=== PATIENT | female | born 1945 | race Caucasian/White ===

== ENCOUNTER → 2023-07-09 14:27 | Outpatient (REF) | payer MEDICARE, OTHER, SELFPAY | LOC: REG 14:27 | PROVIDERS: ATTENDING PHYSICIAN Nurse Practitioner Family; REFERRING PHYSICIAN Internal Medicine | DX: R04.2 Hemoptysis (principal); J41.8 Mixed simple and mucopurulent chronic bronchitis | CPT/HCPCS: 87070; 87077; 87185; 87205 ==

== ENCOUNTER → 2023-07-13 13:07 | Outpatient (REF) | payer MEDICARE, OTHER, SELFPAY | LOC: RAD 13:07 | PROVIDERS: ATTENDING PHYSICIAN Internal Medicine; FAMILY PHYSICIAN Internal Medicine | DX: J41.8 Mixed simple and mucopurulent chronic bronchitis (principal) | CPT/HCPCS: 71046 ==

== ENCOUNTER → 2024-01-05 10:27 | Outpatient (REF) | payer MEDICARE, OTHER, SELFPAY | LOC: RAD 10:27 | PROVIDERS: ATTENDING PHYSICIAN Nurse Practitioner Family; FAMILY PHYSICIAN Internal Medicine | DX: R04.2 Hemoptysis (principal) | CPT/HCPCS: 71250 ==

== ENCOUNTER → 2024-01-30 12:59 | Outpatient (REF) | payer MEDICARE, OTHER, SELFPAY | LOC: REG 12:59 | PROVIDERS: ATTENDING PHYSICIAN Nurse Practitioner Family | DX: J41.8 Mixed simple and mucopurulent chronic bronchitis (principal) | CPT/HCPCS: 87070; 87205 ==

== ENCOUNTER 2024-03-24 02:49 | Inpatient (IN) | payer MEDICARE, OTHER, SELFPAY ==
[2024-03-24] VITALS (9 sets, daily range): BP systolic 90–144; BP diastolic 39–109; BMI 33.4; BMI 31.4
[2024-03-24 01:26] LABS: % Basophils 0.4 % (0-2); % Eosinophils 0.9 % (0-6); % Immature Granulocytes 0.3 % (0-0.5); % Lymphocytes 4.6 % (20.5-51.1); % Monocytes 3.3 % (1.7-9.3); % Neutrophils 90.5 % (42.2-75.2); Absolute Basophils 0.1 10^3/uL (0-0.2); Absolute Eosinophils 0.2 10^3/uL (0-0.7); Absolute Immature Granulocytes 0.1 10^3/uL (0-0.05); Absolute Lymphocytes 0.8 10^3/uL (1.2-3.4); Absolute Monocytes 0.5 10^3/uL (0.1-0.6); Absolute Neutrophils 14.6 10^3/uL (1.4-6.5); Hematocrit 41.6 % (37.0-47.0); Mean Corp Hgb Conc. 33.7 g/dL (33.0-37.0); Mean Corpuscular Hgb 32.5 pg (27.0-31.0); Mean Corpuscular Volume 96.5 fL (81.0-99.0); Mean Platelet Volume 9.5 fL (7.4-10.4); Nucleated Red Blood Cells % 0 %; Platelet Count 204 10^3/uL (130-400); Red Blood Cell Count 4.31 10^6/uL (4.20-5.40); Red Cell Dist. Width 12.5 % (11.5-14.5); White Blood Cell Count 16.2 10^3/uL (4.8-10.8)
[2024-03-24] MEDS: TYLENOL 650 MG PO ×4 (01:30→21:39)
--- NOTE | 2024-03-24 01:38 | ED.GENMED ---
History of Present Illness
<Lakeshia Pollack PA-C - Last Filed: 03/24/24 02:10>
General
Chief Complaint: Cough
Source: patient
Exam Limitations: none
Time Seen by Provider: 03/24/24 00:58
Nursing documentation reviewed up to this point in time: agreed with
History of Present Illness
History of Present Illness:
78 Y/O F with h/o afib on eliquis, CHF pEF, HTN, HLD, PACER, asthma, restrictive lung disease, no o2
here from home via ems for vomiting, upper back/ches tpain an dblood tinged sputum
pt says it hit her all of a sudden this evening and she did vomit a few times at home and then got a cough and was coughing up bloood
small streaks not large amount
initially we thought her eliquis was held for recent eye surgery but family confirms it was not
she is compliant with eliquis
she has had blood tinged sputum previusly with pna
pt was unaware she had a fever.
she initially c/o L upper/lateral back pain but then said it was left lower back pain
no abdomianl pain
some persistent nausea
given zofran IM by EMS
pt had previous IV contrast anaphylaxis
Past History
<Lakeshia Pollack PA-C - Last Filed: 03/24/24 02:10>
Past History
ED Past Medical History: Arrthythmia (Paroxysmal atrial fibrillation), CHF, HTN and Hypercholesterolemia
ED Past Surgical History: Cardiac (A. fib ablation x2, pacemaker), Gynecological (Hysterectomy) and Orthopedic (Hip replacement, cubital tunnel syndrome left arm 2008)
Social History
Tobacco: Former smoker (Quit at least 40 years ago)
Alcohol: None
Personal:
Living: with family
Employment: Retired
Family History
Family History: Other (Noncontributory)
Review of Systems
<Lakeshia Pollack PA-C - Last Filed: 03/24/24 02:10>
Review of Systems
Allergies reviewed?: Yes
All Other Systems: Not applicable
Phy Exam
<ELLEN Aggarwal Last Filed: 03/24/24 02:10>
Physical Exam
Physical Exam:
GENERAL: Alert ,ill appearing, spitting up, moaning
EYE: pupils equal and reactive
NECK: Supple
ENT: o/p clr, mmm.
CARDIAC: Regular rate and rhythm .
LUNGS: crackles L base, tachypneic, grunting; hypoxic
ABDOMEN: Soft, without focal tenderness, no r/g, no cvat, normal bowel sounds
NEUROLOGICAL: Alert and oriented, no focal neuro deficits
SKIN: Warm and dry, skin intact.
MUSCULOSKELETAL: No edema, well perfused. neg clarissa's sign
PSYCH: Normal and appropriate interaction.
Sepsis
<Lakeshia Pollack PA-C - Last Filed: 03/24/24 02:10>
Sepsis Screening
Sepsis Assessment: Sepsis
Sepsis Screen
Sepsis Screen: Sepsis
Date: 03/24/24
Time: 02:01
<Lucila Matson DO - Last Filed: 03/24/24 02:10>
Sepsis Screen
Sepsis Screen: Sepsis
Date: 03/24/24
Time: 02:08
Course
<ELLEN Aggarwal Last Filed: 03/24/24 02:10>
Orders/Labs/Results
Orders:
Orders
03/24/24 01:02
EKG [Electrocardiogram (*1)] Urgent
Reason for Study: Shortness of Breath
EKG- Treatment ONCE
03/24/24 01:04
Cardiac Monitoring- Treatment ONCE
IV Insert/Care/Rem.- Treatment PRN
CR Chest - 2 Views Urgent
Comment:
Reason For Exam: suspected infection
Pulse Ox/cont/shift [RESP] Urgent
Quantity: 1
Special Instructions: CONTINUOUS
03/24/24 01:07
Complete Blood Count/With Diff Urgent
Comprehensive Metabolic Panel Urgent
Lactic Acid Q4H
Comment: ON ICE, CANCEL 2ND ORDER IF FIRST LACTIC ACID LEVEL <2
Lipase Urgent
Comment: ADD ON
03/24/24 01:11
COVID-19 Antigen Urgent
Source: Nasal Swab
Influenza A+B Rapid Molecular Urgent
TRIP Source: Nasal Swab
Specimen Description:
03/24/24 01:20
Acetaminophen [Tylenol] 650 mg PO NOW STA
03/24/24 01:22
Troponin I Urgent
03/24/24 01:25
PTT Urgent
Procalcitonin Urgent
PCT Algorithmm Indication: Respiratory
Prothrombin Time Urgent
03/24/24 01:35
Diphenhydramine [Benadryl] 50 mg IV NOW STA
Hydrocortisone Sod Succinate [Solu-Cortef] 200 mg IV NOW STA
03/24/24 01:37
0.9% Sodium Chloride 500 ml [Nss] 500 ml IV BOLUS
03/24/24 01:45
Azithromycin 500 mg/250 ml [Zithromax Infusion] 500 mg in 250 ml IV NOW
03/24/24 01:46
CefTRIAXone [Rocephin] 2,000 mg IV NOW STA
03/24/24 01:50
Add On- LAB Urgent
Tests Added?: LIPASE
03/24/24 01:51
Ondansetron Injectable [Zofran] 4 mg .ROUTE .STK-MED ONE
Ondansetron Injectable [Zofran] 4 mg IV NOW STA
03/24/24 02:06
Blood Culture Urgent
TRIP Source: Blood/Venous
Specimen Description:
03/24/24 05:15
Lactic Acid Q4H
Comment: ON ICE, CANCEL 2ND ORDER IF FIRST LACTIC ACID LEVEL <2
Abnormal Lab Results
03/24/24
01:07
WBC 16.2 H 10^3/uL
(4.8-10.8)
MCH 32.5 H pg
(27.0-31.0)
Abs Immat Gran (auto) 0.1 H 10^3/uL
(0-0.05)
Absolute Neuts (auto) 14.6 H 10^3/uL
(1.4-6.5)
Absolute Lymphs (auto) 0.8 L 10^3/uL
(1.2-3.4)
Neutrophils % 90.5 H %
(42.2-75.2)
Lymphocytes % 4.6 L %
(20.5-51.1)
BUN 23 H mg/dl
(7-17)
Glucose 123 H mg/dl
(70-99)
03/24/24 01:07
03/24/24 01:07
Vital Signs
Initial and Last Documented VS:
Initial Vital Signs
Temp Pulse Resp BP Pulse Ox
101.8 F H 60 30 144/109 87
03/24/24 00:58 03/24/24 00:58 03/24/24 00:58 03/24/24 00:58 03/24/24 00:58
Last Documented Vital Signs
Temp Pulse Resp BP Pulse Ox
101.8 F H 61 21 144/109 95
03/24/24 00:58 03/24/24 02:00 03/24/24 02:00 03/24/24 00:58 03/24/24 01:30
<Lucila Matson DO - Last Filed: 03/24/24 02:10>
Orders/Labs/Results
Orders:
Orders
03/24/24 01:02
EKG [Electrocardiogram (*1)] Urgent
Reason for Study: Shortness of Breath
EKG- Treatment ONCE
03/24/24 01:04
Cardiac Monitoring- Treatment ONCE
IV Insert/Care/Rem.- Treatment PRN
CR Chest - 2 Views Urgent
Comment:
Reason For Exam: suspected infection
Pulse Ox/cont/shift [RESP] Urgent
Quantity: 1
Special Instructions: CONTINUOUS
03/24/24 01:07
Complete Blood Count/With Diff Urgent
Comprehensive Metabolic Panel Urgent
Lactic Acid Q4H
Comment: ON ICE, CANCEL 2ND ORDER IF FIRST LACTIC ACID LEVEL <2
Lipase Urgent
Comment: ADD ON
03/24/24 01:11
COVID-19 Antigen Urgent
Source: Nasal Swab
Influenza A+B Rapid Molecular Urgent
TRIP Source: Nasal Swab
Specimen Description:
03/24/24 01:20
Acetaminophen [Tylenol] 650 mg PO NOW STA
03/24/24 01:22
Troponin I Urgent
03/24/24 01:25
PTT Urgent
Procalcitonin Urgent
PCT Algorithmm Indication: Respiratory
Prothrombin Time Urgent
03/24/24 01:35
Diphenhydramine [Benadryl] 50 mg IV NOW STA
Hydrocortisone Sod Succinate [Solu-Cortef] 200 mg IV NOW STA
03/24/24 01:37
0.9% Sodium Chloride 500 ml [Nss] 500 ml IV BOLUS
03/24/24 01:45
Azithromycin 500 mg/250 ml [Zithromax Infusion] 500 mg in 250 ml IV NOW
03/24/24 01:46
CefTRIAXone [Rocephin] 2,000 mg IV NOW STA
03/24/24 01:50
Add On- LAB Urgent
Tests Added?: LIPASE
03/24/24 01:51
Ondansetron Injectable [Zofran] 4 mg .ROUTE .STK-MED ONE
Ondansetron Injectable [Zofran] 4 mg IV NOW STA
03/24/24 02:06
Blood Culture Urgent
TRIP Source: Blood/Venous
Specimen Description:
03/24/24 05:15
Lactic Acid Q4H
Comment: ON ICE, CANCEL 2ND ORDER IF FIRST LACTIC ACID LEVEL <2
Abnormal Lab Results
03/24/24
01:07
WBC 16.2 H 10^3/uL
(4.8-10.8)
MCH 32.5 H pg
(27.0-31.0)
Abs Immat Gran (auto) 0.1 H 10^3/uL
(0-0.05)
Absolute Neuts (auto) 14.6 H 10^3/uL
(1.4-6.5)
Absolute Lymphs (auto) 0.8 L 10^3/uL
(1.2-3.4)
Neutrophils % 90.5 H %
(42.2-75.2)
Lymphocytes % 4.6 L %
(20.5-51.1)
BUN 23 H mg/dl
(7-17)
Glucose 123 H mg/dl
(70-99)
03/24/24 01:07
03/24/24 01:07
Vital Signs
Initial and Last Documented VS:
Initial Vital Signs
Temp Pulse Resp BP Pulse Ox
101.8 F H 60 30 144/109 87
03/24/24 00:58 03/24/24 00:58 03/24/24 00:58 03/24/24 00:58 03/24/24 00:58
Last Documented Vital Signs
Temp Pulse Resp BP Pulse Ox
101.8 F H 61 21 144/109 95
03/24/24 00:58 03/24/24 02:00 03/24/24 02:00 03/24/24 00:58 03/24/24 01:30
<Lakeshia Pollack PA-C - Last Filed: 03/24/24 02:10>
MDM/Problems Addressed
Differential Diagnosis Includes:
pna, PE, PTX, pleural effusion, pancreaitits
MDM/Problems Addressed:
mary zuñiga 78 y/o F asthma, RLD, no o2, afib/pacer on eliquis
vomited tonight several times, then cough, small hemoptysis, L sided back/chest pain, hypoxic on RA, febrile
LLL pna
pulse ox 93% on 3L
wbc 16
lactate normal
flu/covid neg
trop neg
compliant with eliquis so unlikely PE; previous anaphylaxis to contrast;
<Lakeshia Pollack PA-C - Last Filed: 03/24/24 02:10>
*Critical Care Note
Total Time (30-74mins, 75-104mins- exclusive of procedures): Not Applicable
ED Attending Note
<ELLEN Aggarwal Last Filed: 03/24/24 02:10>
-
Portions of this chart may have been created with voice recognition software.� Occasional wrong word or��sound alike� substitutions may have occurred due to the inherent limitations of voice recognition software.
<Lucila Matson DO - Last Filed: 03/24/24 02:10>
ED Attending Note
Patient seen and examined by attending physician: Yes
I performed a history and physical exam of patient and discussed management with resident, I reviewed resident's note and agree with documented findings and plan of care.: Yes
ED Attending Note:
78-year-old woman who resides at home with family. She has history of A-fib chronically maintained on Eliquis. History of CHF, hypertension, hyperlipidemia, restrictive lung disease, pacemaker, obstructive sleep apnea, GERD, seizure disorder,
migraine headaches. Prior history of pneumonia with hemoptysis with hospitalization June 2022. Recent right eye cataract extraction.
She presents with several hour history of cough, hemoptysis, fever, chills, left lower lateral thoracic back pain.
Found to be significant febrile 101.8 �F.
Moderately hypoxic with room air pulse ox of 89%.
Moderately tachypneic initially. Tachypnea and hypoxia have improved with nasal cannula oxygen currently at 3 L.
Coarse rhonchi and moderately decreased breath sounds left base.
Chest x-ray shows large dense pneumonia left lower lobe. I suspect community-acquired pneumonia as cause for fever, hemoptysis, hypoxia.
She remains hemodynamically stable.
PE/pulmonary infarct much less likely as patient maintained on Eliquis, compliant with medication and no prior history of thromboembolism.
History, exam and chest x-ray findings not consistent with aortic dissection, Boerhaave's.
CTA of the chest initially considered but at this point we will hold off.
IV fluids initiated as well as Tylenol, will initiate IV antibiotics and admit to hospitalist service.
Discharge Plan
Departure
Patient Disposition: Admit
Date of Disposition: 03/24/24
Time of Disposition: 01:59
Admit to: IMU
Presentation/result/management discussed w/ accepting MD/DO: Hospitalist
Condition: Fair
Covid-19: Negative COVID-19
Discharge Problem:
Pneumonia, Hemoptysis, Hypoxic
Prescriptions:
No Action
atorvastatin 20 mg Tablet
20 mg PO HS
sotalol 80 mg Tablet
40 mg PO BID
spironolactone 25 mg Tablet
12.5 mg PO DAILY
ropinirole 0.5 mg Tablet
1 mg PO HS
omeprazole 20 mg Capsule,Delayed Release(Dr/Ec)
20 mg PO DAILY
montelukast 10 mg Tablet
10 mg PO DAILY
lisinopril 5 mg Tablet
2.5 mg PO QPM
estradiol 0.5 mg Tablet
1 mg PO DAILY
dnbcb-[id number]-epa-fish oil 350-400 mg Capsule
1 cap PO DAILY
folic acid 800 mcg Tablet
0.8 mg PO QPM
levalbuterol tartrate 45 mcg/actuation Hfa Aerosol Inhaler
2 inh INHALATION R Q6
potassium chloride [Klor-Con M20] 20 mEq tablet,ER particles/crystals
20 meq PO DAILY 30 Days Qty: 30 0RF
multivitamin Tablet
1 tab PO DAILY
ascorbic acid (vitamin C) [Vitamin C] 1,000 mg Tablet
1,000 mg PO DAILY
polyethylene glycol 3350 [Miralax] 17 gram Powder In Packet
17 g PO DAILY PRN (Reason: constipation)
calcium carbonate 500 mg calcium (1,250 mg) Tablet
600 mg PO QPM
cholecalciferol (vitamin D3) [Vitamin D3] 25 mcg (1,000 unit) Tablet
25 mcg PO QPM
zonisamide 100 mg Capsule
300 mg PO DAILY
Rx Instructions:
3 TABS DAILY IN PM
budesonide 0.5 mg/2 mL Suspension For Nebulization
0.5 mg INHALATION BID
Eliquis 5 mg Tablet
5 mg PO BID
Anoro Ellipta 62.5-25 mcg/actuation Blister With Device
1 inh INHALATION DAILY
Emgality Pen 120 mg/mL Pen Injector
120 mg SC QMONTH
Referrals:
Erika Up DO [Family Provider] -
Interventions
Interventions:
*Risk Screen - Suicide Last Done: 03/24/24 00:58
*General Assessment Last Done: 03/24/24 00:58
*Neglect/Abuse Screening Last Done: 03/24/24 00:58
ED- Fall Risk Assessment Last Done: 03/24/24 01:19
*ED COVID-19 Vaccine History Last Done: 03/24/24 00:58
ED- Pulmonary Assessment Last Done: 03/24/24 01:19
Discharge Date and Time
Print Language: SYRIAC
[2024-03-24 01:39] LABS: Lactic Acid 1.1 mmol/L (0.7-2.0)
[2024-03-24 01:43] LABS: COVID-19 Antigen Negative (Negative)
[2024-03-24 01:47] LABS: ALT (SGPT) 15 U/L (0-35); AST (SGOT) 22 U/L (14-36); Albumin 4.3 g/dl (3.5-5.0); Alkaline Phosphatase 83 U/L (38-126); Blood Urea Nitrogen 23 mg/dl (7-17); Carbon Dioxide 27 mmol/L (22-30); Chloride 102 mmol/L (98-107); Estimated Creatinine Clearance 71 ml/min; Glucose 123 mg/dl (70-99); Potassium 4.3 mmol/L (3.5-5.1); Sodium 137 mmol/L (135-145); Total Bilirubin 0.5 mg/dl (0.2-1.3); Total Protein 6.9 g/dl (6.3-8.2); eGFR > 60.00
[2024-03-24 01:52] LABS: Troponin I < 0.012 ng/ml
[2024-03-24 02:00] LABS: APTT 26.3 Sec (23.4-35.0); INR 1.03; PT 13.8 Sec (11.4-14.6)
[2024-03-24 02:03] LABS: Procalcitonin < 0.05 ng/ml (0.0-0.25)
[2024-03-24] MEDS: NSS 500 IV (02:06)
[2024-03-24] MEDS: ZOFRAN 4 MG IV (02:06)
[2024-03-24] MEDS: ROCEPHIN 2000 MG IV (02:06)
[2024-03-24 02:15] LABS: Lipase 97 U/L (23-300)
[2024-03-24] MEDS: ZITHROMAX INFUSION 250 IV (02:19)
--- NOTE | 2024-03-24 02:30 | HPS.HSE ---
Family Physician
-
Family Physician: Erika Up
Chief Complaint
-
Cough, Back pain
History of Present Illness
Patient is a 78y F with PMH significant for COPD, A-Fib and NADIA on CPAP who presents to ED complaining of cough, hemoptysis and back pain. Patient states that she was feeling well until this evening when her symptoms started rather suddenly.
She is not aware of any known sick contacts. She reports pain in the L flank / low back area. Nausea at home with a few episodes of non-bloody emesis. She has had cough productive of blood-tinged / streaked mucus throughout the evening.
Patient states that she felt well the day prior to admission.
She had R cataract surgery on . She did not miss any doses of Eliquis for this surgery.
Medical History
Past Medical History
Past Medical History: Reports Other
Additional Past Medical History:
COPD
A-Fib s/p Ablation
Diverticular Disease
GERD / Hiatal Hernia
IBS
NADIA on CPAP
Seizure Disorder
Melanoma
Chronic HFpEF
Past Surgical History: Reports Other
Additional Past Surgical History:
Hysterectomy
Bilateral Breast Implants
AMADOR
PPM Placement
Left Cubital Tunnel Surgery
PVI Ablation x 2
Skin Cancer Excision(s)
Sinus Surgery
Social History
Tobacco: Former Smoker (Quit in 1984. < 20 pack years total use.)
Alcohol: Occasional
Drug: None
Family History
Family History: Not pertinent
Allergies / Home Medications
Allergies reflects when Allergies were last updated in [facility].
Home Medications with original date entered in [facility]
Allergy/Medication List:
Allergies
Allergy/AdvReac Type Severity Reaction Status Date / Time
iohexol [From Omnipaque] Allergy Severe Anaphylaxis Verified 07/16/22 19:22
mupirocin [From Bactroban] Allergy Intermediate cellulitis Verified 07/16/22 12:36
beclomethasone dipropionate Allergy Rash Verified 07/16/22 12:36
[From Vancenase]
cortisone Allergy Nausea / Verified 11/20/22 10:36
Vomiting
diclofenac potassium Allergy Rash Verified 07/16/22 12:36
[From Cataflam]
dofetilide [From Tikosyn] Allergy Unknown Verified 11/20/22 10:36
gabapentin Allergy Swelling Verified 11/20/22 10:35
Influenza Virus Vaccines Allergy Nausea/vomi Verified 07/16/22 12:36
ting
meperidine HCl [From Demerol] Allergy hyperactivi Verified 07/16/22 12:36
ty
metolazone Allergy Nausea / Verified 11/20/22 10:36
Vomiting
metronidazole [From Flagyl] Allergy Rash Verified 07/16/22 12:36
Metronidazole HCl Allergy Rash Verified 07/16/22 12:36
[From Flagyl]
moxifloxacin [From Avelox] Allergy Tongue Verified 11/20/22 10:34
Swelling
nabumetone [From Relafen] Allergy Rash Verified 07/16/22 12:36
pneumococcal 23-valent Allergy nausea and Verified 07/16/22 12:36
polysacchari vomiting
[From Pneumovax 23]
propoxyphene napsylate Allergy Rash Verified 07/16/22 12:36
[From Darvocet-N 100]
Tetanus Vaccines and Toxoid Allergy nausea/vomi Verified 07/16/22 12:36
ting
Home Medications
atorvastatin 20 mg tablet 20 mg PO HS High cholesterol 01/07/22
estradiol 0.5 mg tablet 1 mg PO DAILY Hormonal agent 01/07/22
lisinopril 5 mg tablet 2.5 mg PO QPM Blood pressure 01/07/22
montelukast 10 mg tablet 10 mg PO DAILY Allergies 01/07/22
ypgqo9-hih-ghi-other sozff9c-lopx oil 350 mg-400 mg capsule 1 cap PO DAILY Supplement 01/07/22
omeprazole 20 mg capsule,delayed release 20 mg PO DAILY Gastrointestinal issue 01/07/22
ropinirole 0.5 mg tablet 1 mg PO HS restless legs 01/07/22
sotalol 80 mg tablet 40 mg PO BID Arrhythmia 01/07/22
spironolactone 25 mg tablet 12.5 mg PO DAILY Fluid retention/Swelling 01/07/22
folic acid 800 mcg tablet 0.8 mg PO QPM Supplement 01/09/22
levalbuterol tartrate 45 mcg/actuation aerosol inhaler 2 inh inhalation R Q6 Lung/breathing issues 02/24/22
potassium chloride 20 mEq tablet,extended release(part/cryst) (Klor-Con M) 20 meq PO DAILY Electrolyte Repletion 30 days #30 tabs 03/01/22
ascorbic acid (vitamin C) 1,000 mg tablet (Vitamin C) 1,000 mg PO DAILY Supplement 07/16/22
calcium carbonate 600 mg PO QPM Supplement 07/16/22
cholecalciferol (vitamin D3) 25 mcg (1,000 unit) tablet (Vitamin D3) 25 mcg PO QPM Supplement 07/16/22
multivitamin 1 tab PO DAILY Supplement 07/16/22
polyethylene glycol 3350 17 gram oral powder packet (Miralax) 17 g PO DAILY PRN constipation 07/16/22
zonisamide 100 mg capsule 300 mg PO DAILY 11/20/22
apixaban 5 mg tablet (Eliquis) 5 mg PO BID 03/24/24
budesonide 0.5 mg/2 mL suspension for nebulization 0.5 mg inhalation BID 03/24/24
galcanezumab-gnlm 120 mg/mL subcutaneous pen injector (Emgality Pen) 120 mg SC QMONTH 03/24/24
prednisolone sod phos 1 %-moxifloxacin 0.5 %-bromfen 0.075 % eye drops 3 drp ophthalmic (eye) TID 03/24/24
umeclidinium 62.5 mcg-vilanterol 25 mcg/actuation powdr for inhalation (Anoro Ellipta) 1 inh inhalation DAILY 03/24/24
Review of Systems
-
History Source: Patient
A 12 point ROS was completed and negative except as noted: Yes
Constitutional: Reports Fatigue; Denies Fever or Chills
EENT: Denies Sore Throat
Respiratory: Reports Cough, Hemoptysis and Trouble Breathing
Cardiac: Denies Chest Pain, Diaphoresis or Palpitations
Abdomen/GI: Reports Nausea and Vomiting; Denies Abdominal Pain, Diarrhea, Bloody Stools or Black Stools
: Reports Flank Pain; Denies Dysuria, Frequency or Bleeding
Musculoskeletal: Reports Other (Back Pain); Denies Joint Pain or Edema
Neurological: Denies Dizzy or Headache
Psych: Denies Depression or Anxiety
Physical Exam
Vital Signs
Vital Signs
Temp Pulse Resp BP Pulse Ox
101 F H 70 22 104/49 95
03/24/24 02:20 03/24/24 02:21 03/24/24 02:21 03/24/24 02:21 03/24/24 02:21
Physical Exam
General: Other (Ill-appearing 78y F in mild distress due to nausea, pain, etc. Tactile fever.)
HEENT: Moist mucous membranes and PERRLA
Respiratory: Other (Decreased BS / dullness appreciated over the L base. No wheezing.)
Cardiac: S1/S2 and Regular Rhythm; No Murmur
GI: Soft, Non Tender, Non Distended and Normal Bowel Sounds
Musculoskeletal: No Clubbing, No Cyanosis and No Edema
Neuro: AO x 3
Laboratory Results
-
03/24/24 01:07
03/24/24 01:07
Laboratory Results
PT 13.8 Sec (11.4-14.6) 03/24/24 01:25
INR 1.03 03/24/24 01:25
APTT 26.3 Sec (23.4-35.0) 03/24/24 01:25
Lactic Acid 1.1 mmol/L (0.7-2.0) 03/24/24 01:07
Total Bilirubin 0.5 mg/dl (0.2-1.3) 03/24/24 01:07
AST 22 U/L (14-36) 03/24/24 01:07
ALT 15 U/L (0-35) 03/24/24 01:07
Alkaline Phosphatase 83 U/L (38-126) 03/24/24 01:07
Troponin I < 0.012 ng/ml 03/24/24 01:22
Lipase 97 U/L (23-300) 03/24/24 01:07
Impression/Plan
-
A/P: Patient is a 78y F with PMH significant for COPD, NADIA and seizure disorder who presents to ED complaining of cough, hemoptysis and back pain.
LLL Pneumonia
Sepsis secondary to the above
Acute Hypoxemic Respiratory Insufficiency secondary to the above
- Admit for further evaluation and treatment.
- Patient presents with fever, tachypnea and leukocytosis with CXR demonstrating L base infiltrate / opacity.
- Abx with ceftriaxone and doxycycline.
- Supportive care including nebs, mucolytics, O2 support, etc.
- Follow for clinical improvement.
- Pulmonary evaluation for additional recommendations.
- Consideration for PE given abrupt onset - but with abnormal CXR, fever and current use of Eliquis this is less likely.
Paroxysmal Atrial Fibrillation
- No recurrent A-Fib appreciated s/p most recent PVI ablation.
- Remains on sotalol and OAC.
- Continue current CV med regimen including Eliquis.
- Monitor on telemetry.
s/p R Cataract Surgery
- Continue current eye drop regimen.
Seizure Disorder
- Stable. No recent seizure activity.
- Continue Zonegran dose without changes.
- Follow for any breakthrough seizure activity.
Chronic HFpEF
- Stable. No evidence of volume overload on exam.
- Continue current med regimen including spironolactone - with holding parameters for BP.
- Hold potassium supplementation for now and follow labs / lytes.
- Follow I/Os, daily weights, etc.
GERD
- Stable. Continue PPI.
DVT Prophylaxis: Continue Eliquis
Code Status: DNR
[2024-03-24] MEDS: COMPAZINE 5 MG IV (04:16)
--- NOTE | 2024-03-24 06:33 | RESPNOTE ---
Discussed with Dr. Jain to place CPT on Hold until PT Hemoptysis is quantified and Pt is accessed.
[2024-03-24 07:08] LABS: Blood Urea Nitrogen 27 mg/dl (7-17); Calcium 8.9 mg/dl (8.4-10.2); Carbon Dioxide 21 mmol/L (22-30); Chloride 105 mmol/L (98-107); Estimated Creatinine Clearance 57 ml/min; Glucose 138 mg/dl (70-99); Potassium 3.9 mmol/L (3.5-5.1); Sodium 136 mmol/L (135-145); eGFR 58.39
[2024-03-24] MEDS: DUONEB 3 ML INH ×4 (08:04→19:17)
[2024-03-24] MEDS: PROTONIX 40 MG PO (08:20)
[2024-03-24] MEDS: ELIQUIS 5 MG PO ×2 (08:21→21:28)
[2024-03-24] MEDS: BETAPACE PO (08:21)
[2024-03-24] MEDS: MUCINEX 600 MG PO ×2 (08:21→21:27)
[2024-03-24] MEDS: VIBRAMYCIN 100 MG PO ×2 (08:21→21:27)
[2024-03-24] MEDS: SINGULAIR 10 MG PO (08:22)
[2024-03-24 08:52] LABS: Hematocrit 35.1 % (37.0-47.0); Mean Corp Hgb Conc. 34.2 g/dL (33.0-37.0); Mean Corpuscular Volume 96.4 fL (81.0-99.0); Mean Platelet Volume 9.7 fL (7.4-10.4); Platelet Count 163 10^3/uL (130-400); Red Blood Cell Count 3.64 10^6/uL (4.20-5.40); Red Cell Dist. Width 12.5 % (11.5-14.5); White Blood Cell Count 18.9 10^3/uL (4.8-10.8)
--- NOTE | 2024-03-24 09:15 | W.PN.HOSP.TC ---
Today's Communication/Plan
-
see bold
Assessment / Plan
Assessment / Plan
HPI: 78y F with PMH significant for COPD, A-Fib and NADIA on CPAP who presents to ED complaining of cough, hemoptysis and back pain. Patient states that she was feeling well until this evening when her symptoms started rather suddenly. She is not
aware of any known sick contacts. She reports pain in the L flank / low back area. Nausea at home with a few episodes of non-bloody emesis. She has had cough productive of blood-tinged / streaked mucus throughout the evening.
LLL Pneumonia w/ mild hemoptysis
Sepsis secondary to the above
Acute Hypoxemic Respiratory Insufficiency secondary to the above
- Legionella/Streptococcus negative, Influenza negative/COVID-negative
- Appreciate pulmonology input, continue Rocephin/doxy day 1
- Currently requiring 2 L of oxygen, wean as tolerated
- Follow-up on blood/sputum cultures, trend fever curve and white count
Paroxysmal Atrial Fibrillation
- No recurrent A-Fib appreciated s/p most recent PVI ablation.
- Continue on sotalol and Eliquis, monitor on telemetry
S/p R Cataract Surgery
- Continue current eye drop regimen.
Seizure Disorder
- Stable, continue Zonegran dose without changes.
Chronic HFpEF
- Hold spironolactone/lisinopril secondary to soft blood pressure
GERD
- Stable. Continue PPI.
DVT Prophylaxis: Continue Eliquis
Code Status: DNR
Physical Exam
General: Appears to not feel well, no acute distress
HEENT: Normocephalic, Atraumatic, EOMI, MMM
R eye shield in place
Respiratory: Bibasilar crackles
Cardiac: Normal S1/S2, Regular Rate and Rhythm
GI: Soft, Nontender, Nondistended, Normal Bowel Sounds
Extremities: No Clubbing, Cyanosis, or Edema
Neuro: Nonfocal/Grossly Intact
Psych: Calm, Cooperative
Derm: No Visible lesions
Anticipated Discharge: > 48 hours
Subjective/Interval History
-
Date of Service: March 24, 2024
Objective Data
-
Labs:
Laboratory Results
03/24/24 03/24/24 03/24/24
01:07 01: 06:37
WBC 16.2 H 18.9 H
Hgb 14.0 12.0
Hct 41.6 35.1 L
Plt Count 204 163 D
PT 13.8
INR 1.03
APTT 26.3
Sodium 137 136
Potassium 4.3 3.9
Chloride 102 105
Carbon Dioxide 27 21 L
BUN 23 H 27 H
Creatinine 0.8 1.0
Glucose 123 H 138 H
Calcium 10.0 8.9
Total Bilirubin 0.5
AST 22
ALT 15
Alkaline Phosphatase 83
Vital Signs:
Vital Signs
Temp Pulse Resp BP Pulse Ox
98.6 F 60 18 90/43 94
03/24/24 06:39 03/24/24 08:21 03/24/24 08:05 03/24/24 08:21 03/24/24 08:41
--- NOTE | 2024-03-24 11:00 | EDRN ---
Pt awake. I assked her to keep track of how often she is coughing up bloody sputum for us to record
--- NOTE | 2024-03-24 11:46 | EDRN ---
pt 's daughter asked to bring in her eye drops
--- NOTE | 2024-03-24 11:48 | EDRN ---
pt's daughter states that 1 week ago she started a new inhaler- brezby.. as per pulmonology. one of the side effects is pneumonia
--- NOTE | 2024-03-24 12:34 | PTCARENOTE ---
Received pt from ED via stretcher. AAOX3. Ambulated to bed independently. Standby assist. Pt complained of chronic lower back pain, pain medication provided, see MAR. parts sales manager placed. Assessed and oriented to room. Pt verbalized
understanding of call krueger. Call krueger placed within close reach.
--- NOTE | 2024-03-24 14:55 | PTCARENOTE ---
Pt tachycardic, HR 140, non sustaining. Pt sleeping. Md made aware.
--- NOTE | 2024-03-24 15:24 | CON.PUL ---
Consultation
Consultation Request
Date/Time Consultation Requested: 03/24/2024
Date/Time Consultation Performed: 03/24/2024
Requesting Provider: Dr. Jain
Performing Provider: Dr. Colton Thompson
Reason for Consultation: Hemoptysis/pneumonia
Medical History
-
History of Present Illness:
78-year-old female with past medical history significant for COPD, atrial fibrillation, obstructive sleep apnea on CPAP therapy who presented to the emergency room complaining of cough, hemoptysis and back pain. Patient states that for the last 24
hours she has not been feeling well. Symptoms started rather suddenly. Complains of left flank and low back pain area. Reports cough with blood-tinged sputum since the night prior admission.
Patient did have right cataract surgery on .
Has been on anticoagulation all along.
Past Medical History
Past Medical History: Other (See assessment and plan)
Social History
Tobacco: Smoker (Quit in 1984, less than [id number] history.)
Alcohol: Occasional
Drug: None
Family History
Family History: Reviewed & Not Pertinent
Allergies / Home Medications
Allergies
Allergy/AdvReac Type Severity Reaction Status Date / Time
iohexol [From Omnipaque] Allergy Severe Anaphylaxis Verified 07/16/22 19:22
mupirocin [From Bactroban] Allergy Intermediate cellulitis Verified 07/16/22 12:36
beclomethasone dipropionate Allergy Rash Verified 07/16/22 12:36
[From Vancenase]
cortisone Allergy Nausea / Verified 11/20/22 10:36
Vomiting
diclofenac potassium Allergy Rash Verified 07/16/22 12:36
[From Cataflam]
dofetilide [From Tikosyn] Allergy Unknown Verified 11/20/22 10:36
gabapentin Allergy Swelling Verified 11/20/22 10:35
Influenza Virus Vaccines Allergy Nausea/vomi Verified 07/16/22 12:36
ting
meperidine HCl [From Demerol] Allergy hyperactivi Verified 07/16/22 12:36
ty
metolazone Allergy Nausea / Verified 11/20/22 10:36
Vomiting
metronidazole [From Flagyl] Allergy Rash Verified 07/16/22 12:36
Metronidazole HCl Allergy Rash Verified 07/16/22 12:36
[From Flagyl]
moxifloxacin [From Avelox] Allergy Tongue Verified 11/20/22 10:34
Swelling
nabumetone [From Relafen] Allergy Rash Verified 07/16/22 12:36
pneumococcal 23-valent Allergy nausea and Verified 07/16/22 12:36
polysacchari vomiting
[From Pneumovax 23]
propoxyphene napsylate Allergy Rash Verified 07/16/22 12:36
[From Darvocet-N 100]
Tetanus Vaccines and Toxoid Allergy nausea/vomi Verified 07/16/22 12:36
ting
Home Medications
�Medication �Instructions �Recorded �Confirmed �Last Taken �Type
atorvastatin 20 mg tablet 20 mg PO HS High cholesterol 01/07/22 03/24/24 11/19/22 History
estradiol 0.5 mg tablet 1 mg PO DAILY Hormonal agent 01/07/22 03/24/24 11/20/22 History
lisinopril 5 mg tablet 2.5 mg PO QPM Blood pressure 01/07/22 03/24/24 11/19/22 History
montelukast 10 mg tablet 10 mg PO DAILY Allergies 01/07/22 03/24/24 11/20/22 History
omeprazole 20 mg capsule,delayed 20 mg PO DAILY Gastrointestinal 01/07/22 03/24/24 11/20/22 History
release issue
ropinirole 0.5 mg tablet 1 mg PO HS restless legs 01/07/22 03/24/24 11/19/22 History
sotalol 80 mg tablet 40 mg PO BID Arrhythmia 01/07/22 03/24/24 11/20/22 History
spironolactone 25 mg tablet 12.5 mg PO DAILY Fluid 01/07/22 03/24/24 11/20/22 History
retention/Swelling
folic acid 800 mcg tablet 0.8 mg PO QPM Supplement 01/09/22 03/24/24 11/19/22 History
levalbuterol tartrate 45 2 inh inhalation R Q6HPRN PRN sob 02/24/22 03/24/24 11/20/22 History
mcg/actuation aerosol inhaler
potassium chloride 20 mEq 20 meq PO DAILY Electrolyte 03/01/22 03/24/24 11/20/22 Rx
tablet,extended Repletion 30 days #30 tabs
release(part/cryst) (Klor-Con M)
ascorbic acid (vitamin C) 1,000 mg 1,000 mg PO DAILY Supplement 07/16/22 03/24/24 07/16/22 History
tablet (Vitamin C)
calcium carbonate 600 mg PO QPM Supplement 07/16/22 03/24/24 11/19/22 History
cholecalciferol (vitamin D3) 25 25 mcg PO QPM Supplement 07/16/22 03/24/24 11/19/22 History
mcg (1,000 unit) tablet (Vitamin
D3)
multivitamin 1 tab PO DAILY Supplement 07/16/22 03/24/24 11/20/22 History
polyethylene glycol 3350 17 gram 17 g PO DAILYPRN PRN constipation 07/16/22 03/24/24 Unknown History
oral powder packet (Miralax)
zonisamide 100 mg capsule 300 mg PO QPM seizure 11/20/22 03/24/24 11/19/22 History
apixaban 5 mg tablet (Eliquis) 5 mg PO BID Blood Clot 03/24/24 03/24/24 Unknown History
Prevention/Tx
budesonide 0.5 mg/2 mL suspension 0.5 mg inhalation R BID 03/24/24 03/24/24 Unknown History
for nebulization Lung/Breathing Issues
galcanezumab-gnlm 120 mg/mL 120 mg SC QMONTH headache 03/24/24 03/24/24 03/03/24 History
subcutaneous pen injector
(Emgality Pen)
prednisolone sod phos 1 3 drp ophthalmic (eye) TID Eye 03/24/24 03/24/24 Unknown History
%-moxifloxacin 0.5 %-bromfen 0.075 Condition
% eye drops
umeclidinium 62.5 mcg-vilanterol 1 inh inhalation R DAILY 03/24/24 03/24/24 Unknown History
25 mcg/actuation powdr for Lung/Breathing Issues
inhalation (Anoro Ellipta)
Review of Systems
-
History Source: Patient
All other systems: Negative unless noted
Vitals / Labs / Diagnostic Testing
Vital Signs
Temp Pulse Resp BP Pulse Ox
97.5 F 60 18 113/53 95
03/24/24 11:54 03/24/24 15:20 03/24/24 15:20 03/24/24 11:54 03/24/24 15:20
Lab Data
03/24/24 06:37
03/24/24 06:37
Laboratory Results
03/24/24
:25
PT 13.8
INR 1.03
APTT 26.3
Microbiology
03/24/24 11:33 Urine Legionella Urinary Antigen - Final
Negative for Legionella pneumophila Serogroup 1 antigen.
A negative result does not rule out the possiblity of
Legionella infection due to other serogroups or species of
Legionella. Clinical correlation is recommended.
03/24/24 11:33 Urine Streptococcus pneumoniae Antigen (M - Final
Negative for Streptococcus pneumoniae antigen.
A negative result does not exclude infection with
Streptococcus pneumoniae. Clinical correlation is
recommended.
03/24/24 01:11 Nasal Swab Influenza Types A & B (LARRY) - Final
Negative for Influenza A & B, NAAT
Negative results must be combined with clinical observations
and patient history.
Nucleic Acid Amplification test (NAAT)performed on the
[employer] platform.
Diagnostic Testing:
Physical Exam
-
HEENT: Normocephalic
Cardiovascular: S1/S2
Respiratory: Non-Labored Respirations
GI: Soft
Neurology: Awake, Alert and Oriented
Skin: Warm
General: Comfortable
Assessment
-
78-year-old woman with history of former smoking quit long time ago, COPD, obstructive sleep apnea, history of seizure disorder, chronic heart failure with preserved ejection fraction presented with shortness of breath, hypoxemia and back pain.
Hemoptysis due to left lower lobe pneumonia
Chest x-ray 03/24/2024: Demonstrated new left lower lobe retrocardiac infiltrate.
Recent CT chest 01/05/2024: Reviewed, showed no acute disease of the chest. Mild left lower lobe atelectasis versus scarring. No suspicious lung nodules.
Acute hypoxemic respiratory insufficiency
Leukocytosis/fever
Conditions present prior admission:
COPD/chronic bronchitis-ANORO/Budesonide nebs
Moderate airflow obstruction with mildly reduced diffusion capacity on pulmonary function testing.
Last time seen was on 03/12/2024 by Jyotsna RAMIREZ
Normal immunoglobulin levels
Chronic cough
Improved with Trelegy DC due to adverse effects
On ANORO and budesonide neb.
Exposure to cats/dogs/dust
ENT evaluation was normal
History of recurrent mild hemoptysis. Recent CT chest 12/2023 without acute abnormalities or masses.
PAF, s/p PVI 2020, PPM 2019, on AC
CHF with recovered LVEF
HTN
HLD
Hysterectomy
R hip replacement
CTS L 2008
NADIA,- on CPAP.
HH
JERED
Obesity class 2
Seizure disorder, on levetiracetam
Former smoker (1 ppd for 20 y, quit 40 y ago)
On HRT: estradiol for 20 y
Breast implants, cosmetic surgery
Previous history of Pseudomonas pneumonia
Former smoker quitting 1980 [id number] history.
Assessment and plan:
Community-acquired pneumonia left lower lobe with mild hemoptysis.
Left lower lobe infiltrate on chest x-ray is new compared to CAT scan from 12/2023 that was performed in the outpatient setting for her chronic cough.
Prior history of Pseudomonas.
Legionella/Streptococcus antibodies negative
Influenza negative/COVID-negative
Blood cultures pending.
sputum culture pending.
-
Mild hemoptysis in the setting of infection and anticoagulation
Quantify hemoptysis
-
Continue current antibiotics :ceftriaxone/doxycycline. Low threshold to broaden expectorant if patient does not respond.
Follow leukocytosis and fever curve
-
Continue nebulizer for secretion clearance albuterol/ipratropium 4 times a day
Hold systemic corticosteroids
hold pulmicort for now, not bronchospastic.
Mucolytic
Secretion clearance interventions
Acapella device
Continue montelukast
Hold inhalers for now-coughing.
In reviewing outpatient records, she has recently been transition to BREZTRI but it looks that she has some drug drug interactions from
-
Make a take a break from her CPAP due to ongoing coughing
Hopefully can restart as symptoms improve
-
Will follow
Will need radiographic follow-up
Patient has a follow-up appointment with Addis on 04/23/2024
[2024-03-24] MEDS: ZONEGRAN 300 MG PO (17:29)
[2024-03-24] MEDS: FOLVITE 0.8 MG PO (17:29)
--- NOTE | 2024-03-24 17:53 | PTCARENOTE ---
Blood pressure decreased, 98/39, rechecked and result=93/40. made aware, instructed this RN to not administer Zestril, see MAR.
[2024-03-24] MEDS: NON-FORMULARY ITEM 3 DROP RIGHT EYE (21:24)
[2024-03-24] MEDS: REQUIP 1 MG PO (21:27)
[2024-03-24] MEDS: LIPITOR 20 MG PO (21:27)
[2024-03-24] MEDS: BETAPACE 40 MG PO (21:29)
[2024-03-25] VITALS (7 sets, daily range): BP systolic 98–110; BP diastolic 48–65; BMI 31.4
[2024-03-25] MEDS: ROCEPHIN 1000 MG IV (02:41)
[2024-03-25] MEDS: STERILE WATER FOR INJECTION 10 ML IV (02:42)
--- NOTE | 2024-03-25 05:14 | PTCARENOTE ---
Pt on continuous pulse ox per order, pt sating 86-91% on RA while sleeping and ambulating to bathroom. Pt placed on 2L w/ extension tubing, pt sating 96%. Pt w/o c/o dyspnea. Plan of care ongoing.
[2024-03-25 06:08] LABS: Hematocrit 33.6 % (37.0-47.0); Hemoglobin 11.3 g/dL (12.0-16.0); Mean Corp Hgb Conc. 33.6 g/dL (33.0-37.0); Mean Corpuscular Hgb 32.5 pg (27.0-31.0); Mean Corpuscular Volume 96.6 fL (81.0-99.0); Mean Platelet Volume 10.2 fL (7.4-10.4); Platelet Count 144 10^3/uL (130-400); Red Blood Cell Count 3.48 10^6/uL (4.20-5.40); Red Cell Dist. Width 12.8 % (11.5-14.5); White Blood Cell Count 14.2 10^3/uL (4.8-10.8)
[2024-03-25 06:29] LABS: Blood Urea Nitrogen 19 mg/dl (7-17); Calcium 9.2 mg/dl (8.4-10.2); Carbon Dioxide 24 mmol/L (22-30); Chloride 107 mmol/L (98-107); Estimated Creatinine Clearance 69 ml/min; Glucose 112 mg/dl (70-99); Magnesium 1.9 mg/dl (1.6-2.3); Potassium 3.7 mmol/L (3.5-5.1); Sodium 138 mmol/L (135-145); eGFR > 60.00
[2024-03-25] MEDS: DUONEB 3 ML INH ×4 (07:10→19:13)
[2024-03-25] MEDS: BETAPACE 40 MG PO ×2 (09:05→20:15)
[2024-03-25] MEDS: VIBRAMYCIN 100 MG PO ×2 (09:06→20:14)
[2024-03-25] MEDS: ELIQUIS 5 MG PO ×2 (09:06→20:15)
[2024-03-25] MEDS: NON-FORMULARY ITEM 3 DROP RIGHT EYE ×2 (09:07→15:17)
[2024-03-25] MEDS: MUCINEX 600 MG PO ×2 (09:07→20:15)
[2024-03-25] MEDS: PROTONIX 40 MG PO (09:12)
[2024-03-25] MEDS: SINGULAIR 10 MG PO (09:12)
[2024-03-25] MEDS: TYLENOL 650 MG PO (09:15)
--- NOTE | 2024-03-25 10:06 | W.PN.HOSP.TC ---
Today's Communication/Plan
-
see bold
Assessment / Plan
Assessment / Plan
HPI: 78y F with PMH significant for COPD, A-Fib and NADIA on CPAP who presents to ED complaining of cough, hemoptysis and back pain. Patient states that she was feeling well until this evening when her symptoms started rather suddenly. She is not
aware of any known sick contacts. She reports pain in the L flank / low back area. Nausea at home with a few episodes of non-bloody emesis. She has had cough productive of blood-tinged / streaked mucus throughout the evening.
LLL Pneumonia w/ mild hemoptysis
Sepsis secondary to the above
Acute Hypoxemic Respiratory Insufficiency secondary to the above
- Legionella/Streptococcus negative, Influenza negative/COVID-negative
- Appreciate pulmonology input, continue Rocephin/doxy day 2
- Currently on RA, was requiring 2 L of oxygen
- Follow-up on blood/sputum cultures, trend fever curve and white count
Headache
-Tylenol and pain meds as needed
Epistaxis
-Petroleum jelly ointment to the nares
Paroxysmal Atrial Fibrillation
- No recurrent A-Fib appreciated s/p most recent PVI ablation.
- Continue on sotalol and Eliquis, monitor on telemetry
S/p R Cataract Surgery
- Continue current eye drop regimen.
Seizure Disorder
- Stable, continue Zonegran dose without changes.
Chronic HFpEF
- Hold spironolactone/lisinopril secondary to soft blood pressure
GERD
- Stable. Continue PPI.
DVT Prophylaxis: Continue Eliquis
Code Status: DNR
Total time spent to see the patient on the floor, examine the patient, review data and lab results, discuss treatment plan with patient, nursing staff around 51 minutes.
Physical Exam
General: Appears to not feel well, no acute distress
HEENT: Normocephalic, Atraumatic, EOMI, MMM
R eye shield in place
Respiratory: Bibasilar crackles
Cardiac: Normal S1/S2, Regular Rate and Rhythm
GI: Soft, Nontender, Nondistended, Normal Bowel Sounds
Extremities: No Clubbing, Cyanosis, or Edema
Neuro: Nonfocal/Grossly Intact
Psych: Calm, Cooperative
Derm: No Visible lesions
Anticipated Discharge: 24 - 48 hours
Subjective/Interval History
-
Date of Service: March 25, 2024
Patient reports her cough is worse. Shortness of breath is the same. She also complains of a headache and epistaxis. Fever resolved.
Objective Data
-
Labs:
Laboratory Results
03/25/24
05:35
WBC 14.2 H
Hgb 11.3 L
Hct 33.6 L
Plt Count 144
Sodium 138
Potassium 3.7
Chloride 107
Carbon Dioxide 24
BUN 19 H
Creatinine 0.8
Glucose 112 H
Calcium 9.2
Vital Signs:
Vital Signs
Temp Pulse Resp BP Pulse Ox
97.5 F 61 16 107/51 95
03/25/24 07:25 03/25/24 09:05 03/25/24 07:25 03/25/24 09:05 03/25/24 07:25
I&O
03/24/24 03/25/24 03/26/24
06:59 06:59 06:59
Intake Total 480 / 480
Balance 480 / 480
[2024-03-25] MEDS: ROXICODONE 5 MG PO (11:21)
[2024-03-25] MEDS: HYDROPHOR 1 APPLIC TOPICAL ×2 (12:52→20:15)
--- NOTE | 2024-03-25 14:52 | W.PN.HOSP.TC ---
Today's Communication/Plan
-
Discharge today
Assessment / Plan
Assessment / Plan
HPI: 78y F with PMH significant for COPD, A-Fib and NADIA on CPAP who presents to ED complaining of cough, hemoptysis and back pain. Patient states that she was feeling well until this evening when her symptoms started rather suddenly. She is not
aware of any known sick contacts. She reports pain in the L flank / low back area. Nausea at home with a few episodes of non-bloody emesis. She has had cough productive of blood-tinged / streaked mucus throughout the evening.
LLL Pneumonia w/ mild hemoptysis
Sepsis secondary to the above
Acute Hypoxemic Respiratory Insufficiency secondary to the above (respiratory failure ruled out)
- Legionella/Streptococcus negative, Influenza negative/COVID-negative
- Appreciate pulmonology input, currently on Rocephin/doxy day 3
- Currently on RA, was requiring 2 L of oxygen. Home O2 eval performed, does not need oxygen upon discharge
- Medically stable for discharge on cefdinir and doxycycline to complete a 7-day course
- Follow-up with PCP in the office
Headache
-Tylenol and pain meds as needed
Epistaxis
-Petroleum jelly ointment to the nares
Paroxysmal Atrial Fibrillation
- No recurrent A-Fib appreciated s/p most recent PVI ablation.
- Continue on sotalol and Eliquis, monitor on telemetry
S/p R Cataract Surgery
- Continue current eye drop regimen.
Seizure Disorder
- Stable, continue Zonegran dose without changes.
Chronic HFpEF
- Resume spironolactone/lisinopril upon dc
GERD
- Stable. Continue PPI.
DVT Prophylaxis: Continue Eliquis
Code Status: DNR
Physical Exam
General: Appears to not feel well, no acute distress
HEENT: Normocephalic, Atraumatic, EOMI, MMM
R eye shield in place
Respiratory: Bibasilar crackles
Cardiac: Normal S1/S2, Regular Rate and Rhythm
GI: Soft, Nontender, Nondistended, Normal Bowel Sounds
Extremities: No Clubbing, Cyanosis, or Edema
Neuro: Nonfocal/Grossly Intact
Psych: Calm, Cooperative
Derm: No Visible lesions
Anticipated Discharge: Today
Subjective/Interval History
-
Date of Service: March 25, 2024
Shortness of breath continues to improve. No chest pain. No fever, no vomiting.
Objective Data
-
Labs:
Laboratory Results
03/25/24
05:35
WBC 14.2 H
Hgb 11.3 L
Hct 33.6 L
Plt Count 144
Sodium 138
Potassium 3.7
Chloride 107
Carbon Dioxide 24
BUN 19 H
Creatinine 0.8
Glucose 112 H
Calcium 9.2
Vital Signs:
Vital Signs
Temp Pulse Resp BP Pulse Ox
98.1 F 60 16 101/54 91
03/25/24 11:15 03/25/24 11:26 03/25/24 11:26 03/25/24 11:15 03/25/24 11:26
I&O
03/24/24 03/25/24 03/26/24
06:59 06:59 06:59
Intake Total 480 / 480
Balance 480 / 480
--- NOTE | 2024-03-25 16:17 | W.PN.PUL3 ---
Today's Communication / Plan
-
Continue current antibiotics
Hopefully if continues to improve can transition to oral antibiotics in the next 24 hours
Oxygen has been weaned off
Continue to follow culture for additional 24 hours
Continue nebulizer for secretion clearance
Continue to hold systemic corticosteroids
Assessment
-
78-year-old woman with history of former smoking quit long time ago, COPD, obstructive sleep apnea, history of seizure disorder, chronic heart failure with preserved ejection fraction presented with shortness of breath, hypoxemia and back pain.
Hemoptysis due to left lower lobe pneumonia
Chest x-ray 03/24/2024: Demonstrated new left lower lobe retrocardiac infiltrate.
Recent CT chest 01/05/2024: Reviewed, showed no acute disease of the chest. Mild left lower lobe atelectasis versus scarring. No suspicious lung nodules.
Acute hypoxemic respiratory insufficiency
Leukocytosis/fever
Conditions present prior admission:
COPD/chronic bronchitis-ANORO/Budesonide nebs
Moderate airflow obstruction with mildly reduced diffusion capacity on pulmonary function testing.
Last time seen was on 03/12/2024 by Jyotsna RAMIREZ
Normal immunoglobulin levels
Chronic cough
Improved with Trelegy DC due to adverse effects
On ANORO and budesonide neb.
Exposure to cats/dogs/dust
ENT evaluation was normal
History of recurrent mild hemoptysis. Recent CT chest 12/2023 without acute abnormalities or masses.
PAF, s/p PVI 2020, PPM 2019, on AC
CHF with recovered LVEF
HTN
HLD
Hysterectomy
R hip replacement
CTS L 2008
NADIA,- on CPAP.
HH
JERED
Obesity class 2
Seizure disorder, on levetiracetam
Former smoker (1 ppd for 20 y, quit 40 y ago)
On HRT: estradiol for 20 y
Breast implants, cosmetic surgery
Previous history of Pseudomonas pneumonia
Former smoker quitting 1979 [id number] history.
Assessment and plan:
Community-acquired pneumonia left lower lobe with mild hemoptysis.
Left lower lobe infiltrate on chest x-ray is new compared to CAT scan from 12/2023 that was performed in the outpatient setting for her chronic cough.
Prior history of Pseudomonas.
Legionella/Streptococcus antibodies negative
Influenza negative/COVID-negative
Blood cultures negative so far
sputum culture: Normal respiratory judy
-
Mild hemoptysis in the setting of infection and anticoagulation
Quantify hemoptysis
-
Oxygenation improved. Currently on room air.
-
Continue current antibiotics :ceftriaxone/doxycycline. Seems to be responding to antibiotics.
Leukocytosis improving
Fever curve improved
-
Continue nebulizer for secretion clearance albuterol/ipratropium 4 times a day
Hold systemic corticosteroids
hold pulmicort for now, not bronchospastic.
Mucolytic
Secretion clearance interventions
Acapella device
Continue montelukast
Hold inhalers for now-coughing.
In reviewing outpatient records, she has recently been transition to BREZTRI but it looks that she has some drug drug interactions.
-
Make a take a break from her CPAP due to ongoing coughing
Hopefully can restart as symptoms improve
-
Epistaxis-in the setting of anticoagulation.
Moisturizing.
-
Will follow
Will need radiographic follow-up
Patient has a follow-up appointment with Addis on 04/23/2024
Subjective Data
-
Date of Service:
Date of Service: March 25, 2024
Objective Data
Data Reviewed
Vital Signs / I&O / Oxygen:
Vital Signs
Temp Pulse Resp BP Pulse Ox
98.4 F 61 16 104/50 95
03/25/24 15:30 03/25/24 15:30 03/25/24 15:30 03/25/24 15:30 03/25/24 15:30
Intake and Output
03/24/24 03/25/24 03/26/24
06:59 06:59 06:59
Intake Total 480 / 480
Balance 480 / 480
SaO2 95
Nasal Cannula flow liters per 2
minute
Labs/Micro/Reports
Lab Data
03/25/24 05:35
03/25/24 05:35
Microbiology
03/24/24 17:34 Sputum Respiratory Culture - Preliminary
Usual Respiratory Judy
03/24/24 17:34 Sputum Gram Stain - Preliminary
03/24/24 02:13 Blood/Venous Blood Culture - Preliminary
No Growth in 24 hours- Final report to follow
03/24/24 11:33 Urine Legionella Urinary Antigen - Final
Negative for Legionella pneumophila Serogroup 1 antigen.
A negative result does not rule out the possiblity of
Legionella infection due to other serogroups or species of
Legionella. Clinical correlation is recommended.
03/24/24 11:33 Urine Streptococcus pneumoniae Antigen (M - Final
Negative for Streptococcus pneumoniae antigen.
A negative result does not exclude infection with
Streptococcus pneumoniae. Clinical correlation is
recommended.
03/24/24 01:11 Nasal Swab Influenza Types A & B (LARRY) - Final
Negative for Influenza A & B, NAAT
Negative results must be combined with clinical observations
and patient history.
Nucleic Acid Amplification test (NAAT)performed on the
[employer] platform.
--- NOTE | 2024-03-25 17:14 | CM ---
Alert awake oriented patient who lives with her dgt Alison Dang who lives in a 2 story home with 1 step to enter and bed bathroom on first floor. She is independent in driving and in all activities of daily living.Offered VN she declined.Has
CPAP but does nor use it.
Never had VN/SNF
Pharmacy [facility]
PCP Dr Up
PLAN Home no needs
[2024-03-25] MEDS: TYLENOL 1000 MG PO (18:01)
[2024-03-25] MEDS: ZONEGRAN 300 MG PO (18:01)
[2024-03-25] MEDS: FOLVITE 0.8 MG PO (18:01)
[2024-03-25] MEDS: NON-FORMULARY ITEM 1 DROP RIGHT EYE (20:17)
[2024-03-25] MEDS: LIPITOR 20 MG PO (21:04)
[2024-03-25] MEDS: REQUIP 1 MG PO (21:04)
[2024-03-26] MEDS: STERILE WATER FOR INJECTION 10 ML IV (01:39)
[2024-03-26] MEDS: ROCEPHIN 1000 MG IV (01:39)
[2024-03-26] MEDS: TYLENOL 1000 MG PO (01:45)
[2024-03-26 02:39] VITALS: BP 109/54; BMI 31.4
[2024-03-26 05:51] LABS: Hematocrit 34.7 % (37.0-47.0); Hemoglobin 11.7 g/dL (12.0-16.0); Mean Corp Hgb Conc. 33.7 g/dL (33.0-37.0); Mean Corpuscular Hgb 32.6 pg (27.0-31.0); Mean Corpuscular Volume 96.7 fL (81.0-99.0); Mean Platelet Volume 10.3 fL (7.4-10.4); Platelet Count 168 10^3/uL (130-400); Red Blood Cell Count 3.59 10^6/uL (4.20-5.40); Red Cell Dist. Width 12.8 % (11.5-14.5)
[2024-03-26] MEDS: DUONEB 3 ML INH ×2 (07:02→11:08)
[2024-03-26 07:05] VITALS: BP 120/59
[2024-03-26] MEDS: VIBRAMYCIN 100 MG PO (08:13)
[2024-03-26] MEDS: PROTONIX 40 MG PO (08:13)
[2024-03-26] MEDS: ELIQUIS 5 MG PO (08:13)
[2024-03-26] MEDS: MUCINEX 600 MG PO (08:13)
[2024-03-26] MEDS: BETAPACE 40 MG PO (08:13)
[2024-03-26] MEDS: SINGULAIR 10 MG PO (08:14)
[2024-03-26] MEDS: NON-FORMULARY ITEM 3 DROP RIGHT EYE (08:16)
[2024-03-26] MEDS: HYDROPHOR 1 APPLIC TOPICAL (08:16)
[2024-03-26] MEDS: MIRALAX 17 GRAMS PO (08:19)
[2024-03-26 11:05] VITALS: BP 123/55
--- NOTE | 2024-03-26 13:07 | W.DCSUMMARY ---
Discharge Summary
Discharge Data
Date of Admission: 03/24/24
Date of Discharge: 03/26/24
-
Pending Results: No
Hospital Course
Discharge diagnosis:
Sepsis
Left lower lobe pneumonia with mild hemoptysis
Acute hypoxic respiratory insufficiency
Chronic obstructive pulmonary disease, no exacerbation
Headache
Epistaxis
Paroxysmal atrial fibrillation on Eliquis
Recent right cataract surgery
Seizure disorder
Chronic heart failure with a preserved ejection fraction
Gastroesophageal reflux disease
Consults: Pulmonology
Hospital course:
78-year-old female with a past medical history of atrial fibrillation on Eliquis, COPD, hypertension, hyperlipidemia, CHF, and gastroesophageal reflux disease was admitted for sepsis secondary to pneumonia. Patient was treated with IV Rocephin and
doxycycline. Her fever and leukocytosis resolved. She initially required 2 L of oxygen, and was successfully weaned to room air.
Patient's blood pressure in the hospital was initially on the soft side. Her lisinopril spironolactone were held. Her blood pressure improved on the day of discharge, and she can resume these medications upon discharge.
Patient is medically stable for discharge on cefdinir and doxycycline to complete a 7-day course. She needs to follow-up with her primary care doctor in the office, as well as pulmonology in 2-3 weeks.
Disposition: Home self-care
Discharge planning: Required 41 minutes
Discharge Plan
-
Patient Disposition: Home (Routine Discharge)
Discharge Diagnosis/Procedures: Sepsis, pneumonia, hypoxia
Condition: Fair
Diet: Regular
Activity: As tolerated
Driving Restrictions: As prior to admission
Referrals:
Erika Up DO [Family Provider] -
Prescriptions:
New
guaifenesin 600 mg Tablet Extended Release 12hr
600 mg PO Q12 10 Days Qty: 20 0RF
cefdinir 300 mg capsule
300 mg PO BID 5 Days Qty: 10 0RF
doxycycline hyclate 100 mg capsule
100 mg PO BID 5 Days Qty: 10 0RF
Continued
atorvastatin 20 mg Tablet
20 mg PO HS
sotalol 80 mg Tablet
40 mg PO BID
spironolactone 25 mg Tablet
12.5 mg PO DAILY
ropinirole 0.5 mg Tablet
1 mg PO HS
omeprazole 20 mg Capsule,Delayed Release(Dr/Ec)
20 mg PO DAILY
montelukast 10 mg Tablet
10 mg PO DAILY
lisinopril 5 mg Tablet
2.5 mg PO QPM
estradiol 0.5 mg Tablet
1 mg PO DAILY
folic acid 800 mcg Tablet
0.8 mg PO QPM
levalbuterol tartrate 45 mcg/actuation Hfa Aerosol Inhaler
2 inh INHALATION R Q6HPRN PRN (Reason: sob)
potassium chloride [Klor-Con M20] 20 mEq tablet,ER particles/crystals
20 meq PO DAILY 30 Days Qty: 30 0RF
multivitamin Tablet
1 tab PO DAILY
ascorbic acid (vitamin C) [Vitamin C] 1,000 mg Tablet
1,000 mg PO DAILY
polyethylene glycol 3350 [Miralax] 17 gram Powder In Packet
17 g PO DAILYPRN PRN (Reason: constipation)
calcium carbonate 500 mg calcium (1,250 mg) Tablet
600 mg PO QPM
cholecalciferol (vitamin D3) [Vitamin D3] 25 mcg (1,000 unit) Tablet
25 mcg PO QPM
zonisamide 100 mg Capsule
300 mg PO QPM
budesonide 0.5 mg/2 mL Suspension For Nebulization
0.5 mg INHALATION R BID
Eliquis 5 mg Tablet
5 mg PO BID
Patient Comments:
patient has free samples
Anoro Ellipta 62.5-25 mcg/actuation Blister With Device
1 inh INHALATION R DAILY
Emgality Pen 120 mg/mL Pen Injector
120 mg SC QMONTH
prednisoln [id number] 1-0.5-0.075 % Drops
3 drp ophthalmic (eye) TID
Rx Instructions:
Right eye tid for 7 days then on 01/25/25 decrease to bid
Discharge Orders:
Discharge Patient (As Directed); Ordered 03/26/24
Ordered By: Cayden Harrell
Discharge Date and Time
Discharge Date/Time: 03/26/24 14:47
Print Language: SCOTTISH
--- NOTE | 2024-03-26 13:39 | CM ---
MD entered order for discharge.
Spoke with pt she said she was ready for discharge to home.
IMM reviewed signed on chart.
Offered V she declined need.
PLAN Home no needs
[2024-03-26] MEDS: DUONEB INH (14:45)
== END 2024-03-26 14:47 | disposition home or self-care (01) | DRG 871 ==
LOC: 3 WEST ACU 02:49
PROVIDERS: Emergency Medicine; Physician Assistant; ADMITTING PHYSICIAN Hospitalist; ATTENDING PHYSICIAN Family Medicine; EMERGENCY PHYSICIAN Emergency Medicine; FAMILY PHYSICIAN Internal Medicine; OTHER PHYSICIAN Internal Medicine Critical Care Medicine
DX: A41.9 Sepsis, unspecified organism (principal); J18.9 Pneumonia, unspecified organism; I50.32 Chronic diastolic (congestive) heart failure; J44.0 Chronic obstructive pulmonary disease with (acute) lower respiratory infection; Z66 Do not resuscitate; I11.0 Hypertensive heart disease with heart failure; I48.0 Paroxysmal atrial fibrillation; K21.9 Gastro-esophageal reflux disease without esophagitis; G40.909 Epilepsy, unspecified, not intractable, without status epilepticus; G47.33 Obstructive sleep apnea (adult) (pediatric); E78.00 Pure hypercholesterolemia, unspecified; E66.812 Obesity, class 2; R09.02 Hypoxemia; K58.9 Irritable bowel syndrome, unspecified; R04.0 Epistaxis; R06.89 Other abnormalities of breathing; Z98.41 Cataract extraction status, right eye; Z68.31 Body mass index [BMI] 31.0-31.9, adult; Z88.1 Allergy status to other antibiotic agents; Z88.7 Allergy status to serum and vaccine; Z79.01 Long term (current) use of anticoagulants; Z79.899 Other long term (current) drug therapy; Z96.641 Presence of right artificial hip joint; Z91.041 Radiographic dye allergy status; Z87.892 Personal history of anaphylaxis; Z87.891 Personal history of nicotine dependence; Z11.52 Encounter for screening for COVID-19
CPT/HCPCS: 71046; 80048; 80053; 83605; 83690; 83735; 84145; 84484; 85025; 85027; 85610; 85730; 87040; 87070; 87205; 87449; 87502; 87811; 87899; 93005; 94640; 96365; 96375; 99285

== ENCOUNTER → 2024-05-14 14:46 | Outpatient (REF) | payer MEDICARE, OTHER, SELFPAY | LOC: RCS 14:46 | PROVIDERS: ATTENDING PHYSICIAN Internal Medicine Cardiovascular Disease; FAMILY PHYSICIAN Internal Medicine | DX: R06.02 Shortness of breath (principal); I50.32 Chronic diastolic (congestive) heart failure | CPT/HCPCS: 93306 ==

== ENCOUNTER → 2024-06-23 16:17 | Outpatient (REF) | payer MEDICARE, OTHER, SELFPAY | LOC: RAD 16:17 | PROVIDERS: ATTENDING PHYSICIAN Internal Medicine Critical Care Medicine; FAMILY PHYSICIAN Internal Medicine | DX: J44.9 Chronic obstructive pulmonary disease, unspecified (principal); J15.1 Pneumonia due to Pseudomonas | CPT/HCPCS: 71046 ==

== ENCOUNTER → 2024-08-04 14:28 | Outpatient (REF) | payer MEDICARE, OTHER, SELFPAY | LOC: DHSLP 14:28 | PROVIDERS: ATTENDING PHYSICIAN Internal Medicine Critical Care Medicine; FAMILY PHYSICIAN Internal Medicine | DX: G47.30 Sleep apnea, unspecified (principal); R06.83 Snoring | CPT/HCPCS: 95800 ==

== ENCOUNTER → 2024-09-01 13:41 | Outpatient (REF) | payer MEDICARE, OTHER, SELFPAY | LOC: MRI 13:41 | PROVIDERS: ATTENDING PHYSICIAN Surgery; FAMILY PHYSICIAN Internal Medicine | DX: Z91.89 Other specified personal risk factors, not elsewhere classified (principal); Z15.89 Genetic susceptibility to other disease; R92.333 Mammographic heterogeneous density, bilateral breasts | CPT/HCPCS: 76014; 76015; 77049; A9585 ==

== ENCOUNTER → 2024-09-27 09:40 | Outpatient (REF) | payer MEDICARE, OTHER, SELFPAY | LOC: RAD 09:40 | PROVIDERS: ATTENDING PHYSICIAN Internal Medicine Critical Care Medicine; FAMILY PHYSICIAN Internal Medicine | DX: R91.1 Solitary pulmonary nodule (principal) | CPT/HCPCS: 71250 ==

== ENCOUNTER 2024-10-08 08:14 | Inpatient (IN) | payer MEDICARE, OTHER, SELFPAY ==
[2024-10-07 08:59] LABS: Hematocrit 41.5 % (37.0-47.0); Hemoglobin 14.3 g/dL (12.0-16.0); Mean Corp Hgb Conc. 34.5 g/dL (33.0-37.0); Mean Corpuscular Volume 95.2 fL (81.0-99.0); Nucleated Red Blood Cells % 0 %; Platelet Count 176 10^3/uL (130-400); Red Cell Dist. Width 12.2 % (11.5-14.5)
[2024-10-07 10:07] LABS: ALT (SGPT) 13 U/L (0-35); AST (SGOT) 16 U/L (14-36); Albumin 4.4 g/dl (3.5-5.0); Alkaline Phosphatase 61 U/L (38-126); Blood Urea Nitrogen 21 mg/dl (7-17); Calcium 9.8 mg/dl (8.4-10.2); Carbon Dioxide 24 mmol/L (22-30); Chloride 110 mmol/L (98-107); Glucose 97 mg/dl (70-99); Potassium 4.1 mmol/L (3.5-5.1); Sodium 142 mmol/L (135-145); Total Protein 6.8 g/dl (6.3-8.2); eGFR > 60.00
[2024-10-07 10:08] LABS: Prealbumin (Transthyretin) 22.7 mg/dl (17.6-36.0)
[2024-10-07 10:20] LABS: Vitamin D, 25-OH*** 71.3 ng/mL (30-80)
[2024-10-07 14:09] VITALS: BMI 27.1
[2024-10-08] VITALS (19 sets, daily range): BP systolic 0–131; BP diastolic 48–74; BMI 27.1
--- NOTE | 2024-10-08 08:20 | W.SUR.PREOP ---
Pre-Operative Surgical Note
-
I have examined this patient prior to the performance of the scheduled procedure.
The patient's condition is unchanged from the time of the current History and
Physical and the patient is able to undergo the scheduled procedure.
[2024-10-08] MEDS: TYLENOL 1000 MG PO ×3 (08:54→23:09)
[2024-10-08] MEDS: NORMOSOL-R/PLASMALYTE-A 1000 IV (08:55)
[2024-10-08] MEDS: EMEND 40 MG PO (08:56)
--- NOTE | 2024-10-08 12:45 | W.IMMPOSTOP ---
Surgical Immed Post Op Note
-
Primary Surgeon: Piotr
Assisting Surgeon: None
Pre-op Diagnosis: Genetic predisposition for breast cancer
Post-op Diagnosis: Same
Procedure Performed: Bilateral mastectomies
Anesthesia Type: GET
Specimen / Cultures: Bilateral breasts, bilateral capsules
Estimated Blood Loss: 20cc
Complications: None
Operative Findings: None
--- NOTE | 2024-10-08 12:46 | OR.RPT ---
Operative Report
Operative Report
Date of procedure: 10/08/2024
Surgeon: Piotr
Preoperative diagnosis: Genetic predisposition to breast cancer
Postoperative diagnosis: Genetic predisposition to breast cancer
Procedure: Bilateral mastectomies
The patient is a 79-year-old female who carry to deleterious variants predisposing her to high risk of breast cancer. She had bilateral silicone implants in place for an augmentation which were 40 years old and leaking. She presents now for
implant removal, mastopexy, direct implant placement and bilateral mastectomies for risk reduction.
Patient presented to same-day surgical services where she was prepped. She verified site and procedures. DVT and antibiotic prophylaxis were delivered. She was taken to the operating room and in the supine position general and endotracheal
anesthesia was induced. Tavera catheter was inserted using aseptic technique and both breast and chest were prepped and draped in the usual sterile fashion. Appropriate timeout was performed by all team members.
Plastic surgery began by incising keyhole incision resecting skin of the nipple and areolar complex. Dissection was carried down to the augmentation capsule and the implant was found to be ruptured. Plastic surgery suctioned and contained extruded
silicon and the capsule was sutured with 2-0 Vicryl. This was performed on both sides.
Next we began with the mastectomy portion elevating skin flaps on both sides using the PlasmaBlade and beauty retractor. Any larger vessels were tied with 3-0 silk tie. Breast was taken off the chest and then off the laterally displaced
augmentation. Time out of body was noted and the specimen was oriented for the pathologist. Moist packs were placed and plastic surgery entered to remove the capsule and begin the lift and reconstruction portion of the procedure.
()
--- NOTE | 2024-10-08 14:18 | W.IMMPOSTOP ---
Surgical Immed Post Op Note
-
Primary Surgeon: JEAN Vanegas MD
Assisting Surgeon:
Pre-op Diagnosis: Genetic predisposition to breast CA, ruptured breast implants, capsular contracture
Post-op Diagnosis: Same
Procedure Performed: Total capsulectomy, bilateral direct to implant breast reconstruction, insertion of ADM mesh
Anesthesia Type: GA
Specimen / Cultures: Per Dr. Saldaña, bilateral breast capsules
Estimated Blood Loss: 30cc
Complications: None
Operative Findings: As expected
--- NOTE | 2024-10-08 14:19 | OR.RPT ---
Operative Report
Operative Report
Date of surgery: 10/08/2024
Surgeon: JEAN Vanegas MD
Preoperative diagnosis:
1. Genetic predisposition of breast cancer
2. History of breast implants
3. Grade 4 capsular contracture
4. Bilateral implant rupture
Postoperative diagnosis: Same
Procedure:
1. Bilateral total en bloc capsulectomy, removal of breast implants
2. Bilateral direct to implant breast reconstruction
3. Insertion of ADM mesh 12 x 32 cm, bilateral
Specimens: Per Dr. Saldaña, bilateral breast capsules
Complications: None
EBL: 30 cc
Anesthesia: General
Indications for procedure: Patient is a 79-year-old female referred to me by her breast surgeon for history of genetic predisposition to breast cancer, bilateral implant status, imaging findings consistent with bilateral implant rupture. On exam
she had bilateral grade 4 capsular contracture. The implants have been in for over 35 years. Discussion was had about her options. She opted for bilateral mastectomy. She preferred to have a lift via vertical incisions and removal of the nipple
at that time. We discussed her options as related to two-stage tissue trimmer and reinforcer and implant-based reconstruction and autologous options. She elected to attempt a single-stage direct implant reconstruction with insertion of ADM mesh. She understood
the risk of this procedure including the possible revision rate. Risks include capsular contracture, infection, implant rupture, need for repeat procedure, seroma and hematoma. Mastectomy skin flap necrosis with greatly compromised reconstructive
efforts. She understood these risks and desire to proceed
Procedure in detail: Patient was identified preoperatively and the surgical site was confirmed to be the bilateral breast. Patient was marked in the upright position with vertical pattern skin sparing mastectomies. All questions were answered and
consents were confirmed. Patient was taken back to the operating room placed upon table. Anesthesia was induced and the patient was prepped and draped in usual sterile fashion using ChloraPrep solution. A timeout for patient safety was performed
was confirmed that preoperative antibiotics were administered and bilateral SCDs were in place. Timeout for patient the procedure began with Dr. Saldaña performing bilateral incisions and the proposed markings and beginning the mastectomy. I
assisted in her performing this until we reached the breast capsule. At this point I performed a capsulotomy and removed the ruptured implant. This was first done on the left and then on the right. The thickened capsule was then sutured repaired
and the residual of the mastectomy was completed.
When I reentered the procedure, the left mastectomy had been completed and Dr. Saldaña was working on the right. Meticulous hemostasis was ensured and I thoroughly irrigated the space. The footprint of the breast was measured to be 15 cm and a
sizer was selected. The lateral breast fold was recreated with a series of 2-0 Vicryl's. A 600 cc sizer was then placed in the pocket and found to be in appropriate size. Attention was then drawn to placing 2 drains and performing Marcaine
blocks. 2 sheets of 6 x 16 ADM were opened and rinsed in sterile saline followed by dilute antibiotic and Betadine solutions. They were placed through a mesher and then sutured together with 2-0 Vicryl's. This was then draped over a 600 cc
cohesive silicone gel implant with spanning sutures and anterior coverage technique. After donning new gloves the implant and ADM structure was sutured to the left chest wall with a series of 2-0 Vicryl. The wound was then closed in layers with
3-0 Vicryl followed by four 3-0 and 4-0 Monocryl. At this point the right mastectomy had been completed and the exact same performed procedure was performed on the right side. Meticulous hemostasis was ensured and Marcaine blocks were performed in
the pec and intercostal spaces. 2 drains were placed and tunneled in the subcutaneous tissue. The lateral breast fold was recreated with a series of 2-0 Vicryl. 600 cc silicone gel implant was opened and 2 sheets ADM were meshed and sutured
together and draped around the implant. This implant construct was then placed on the chest wall and sutured to the chest wall with a series of 2-0 Vicryl's. The incision was then closed with 3-0 Vicryl followed by 3-0 Monocryl and 4-0 Monocryl.
Patient tolerated the procedure well and was performed out complication. All counts were correct at the end the case. She was extubated taken the PACU for further care
--- NOTE | 2024-10-08 17:29 | PTCARENOTE ---
Received pt from PACU, admission complete, AAOx3, JPx4 draining betadine colored fluid, drains stripped and emptied, see I's & O's. Pt with no c/o pain at this time, oriented to call krueger and room, all surgical sites CDI with surgibra over top. Pt
resting comfortably in bed with daughters at bedside, no new orders at this time.
[2024-10-08] MEDS: ZONEGRAN 300 MG PO (18:14)
[2024-10-08] MEDS: PULMICORT 0.5 MG INH (19:38)
[2024-10-08] MEDS: BETAPACE PO (20:52)
[2024-10-08] MEDS: REQUIP 1 MG PO (22:04)
[2024-10-08] MEDS: LIPITOR 20 MG PO (22:04)
[2024-10-08] MEDS: ANCEF 5 IV (22:05)
[2024-10-09] VITALS: BP 108/55
[2024-10-09 04:00] VITALS: BP 102/64
[2024-10-09] MEDS: ANCEF 5 IV (05:18)
[2024-10-09] MEDS: TYLENOL 1000 MG PO ×2 (05:18→11:12)
[2024-10-09 06:00] VITALS: BMI 27.4
[2024-10-09 07:37] LABS: Hematocrit 39.0 % (37.0-47.0); Hemoglobin 13.8 g/dL (12.0-16.0)
[2024-10-09] MEDS: PULMICORT 0.5 MG INH (07:38)
[2024-10-09] MEDS: STRIVERDI RESPIMAT 2 PUFF INH (07:38)
[2024-10-09] MEDS: SPIRIVA RESPIMAT 2.5 MCG 2 PUFF INH (07:38)
[2024-10-09 07:42] VITALS: BP 107/59
[2024-10-09 07:44] LABS: Blood Urea Nitrogen 14 mg/dl (7-17); Calcium 8.7 mg/dl (8.4-10.2); Carbon Dioxide 20 mmol/L (22-30); Chloride 111 mmol/L (98-107); Estimated Creatinine Clearance 73 ml/min; Glucose 126 mg/dl (70-99); Potassium 4.0 mmol/L (3.5-5.1); Sodium 138 mmol/L (135-145); eGFR > 60.00
[2024-10-09] MEDS: ALDACTONE 12.5 MG PO (08:52)
[2024-10-09] MEDS: PROTONIX 40 MG PO (08:55)
[2024-10-09] MEDS: SINGULAIR 10 MG PO (08:55)
[2024-10-09] MEDS: KCL 10 MEQ PO (08:56)
[2024-10-09] MEDS: BETAPACE 40 MG PO (09:02)
--- NOTE | 2024-10-09 10:09 | W.PN.PLAS ---
Progress Note
Objective Data
Vital Signs
Temp Pulse Resp BP Pulse Ox
97.7 F 67 18 107/59 97
10/09/24 07:42 10/09/24 09:02 10/09/24 07:42 10/09/24 09:02 10/09/24 07:42
Intake and Output
10/08/24 10/09/24 10/10/24
06:59 06:59 06:59
Intake Total 300 / 300
Output Total 1062 / 1062
Balance -762 / -762
Intake:
Oral fluids 100 / 100
IV fluids (Total) 200 / 200
Normosol 200 / 200
Output:
Drain Output (Total) 562 / 562
Left Chest Pepe-Hernandez C 112 / 112
Left Chest Pepe-Hernandez D 39 / 39
Right Chest Pepe-Hernandez A 396 / 396
Right Chest Pepe-Hernandez B 15
Urine, Tavera 500 / 500
Other:
Number of approximated MODERATE 2
amounts of urine
Number of approximated LARGE 3
amounts of urine
Lab Results
10/09/24 06:26
10/09/24 06:26
Assessment / Plan
Wound stable. Patient continues to improve. Doing well. Patient anxious to go.
Patient is stable. Will discharge to home once patient is able to ambulate, void, tolerate a PO diet and pain is adequately controlled.
Visiting Nurse care ordered / not ordered.
Wound care discussed with patient.
Follow up within days.
Follow up with family physician for any medical issues.
Patient given any appropriate scripts at office pre op visit.
--- NOTE | 2024-10-09 11:00 | CM ---
Met with patient at bedside; IMM benefit explained; form signed @ 1050
Pharmacy verified: [facility] @ [address] [facility], [place], [place]
Patient lives in a one floor in-law suite in daughter's home; 1 step to enter; shower stall has a grab bar
PLOF: independent with ambulation, stairs, and ADLs; drives; retired
DME: [employer]
NO SNF or Home Health utilization history
Agreeable to home health/[facility] services; agency options offered; referral sent to [facility]
Daughter will transport home
Plan: Discharge to home today w/ [facility] services
[2024-10-09 12:30] VITALS: BP 116/58
--- NOTE | 2024-10-09 12:46 | VNURNOTE ---
Home Health Liaison met with patient and daughter at bedside to discuss [facility] nurse/therapy, visits, schedule and homebound status. Patient is agreeable and understands that visits at home will be 2-3 x per week to assess and teach drain medical
management.
Patient is aware that [facility] will contact them for start of care in 1-2 days after discharge from .
[facility] referral completed in [facility].
== END 2024-10-09 13:31 | disposition home health service (06) | DRG 584 ==
LOC: 2 NORTH 08:14
PROVIDERS: ADMITTING PHYSICIAN Surgery; ATTENDING PHYSICIAN Surgery Plastic and Reconstructive Surgery; FAMILY PHYSICIAN Internal Medicine
PROC: 0HPU0JZ Removal of Synthetic Substitute from Left Breast, Open Approach (ICD-10-PCS; 2024-10-08)
PROC: 0HRV0JZ Replacement of Bilateral Breast with Synthetic Substitute, Open Approach (ICD-10-PCS; 2024-10-08)
PROC: 0HTV0ZZ Resection of Bilateral Breast, Open Approach (ICD-10-PCS; 2024-10-08)
PROC: 0HPT0JZ Removal of Synthetic Substitute from Right Breast, Open Approach (ICD-10-PCS; 2024-10-08)
DX: Z40.01 Encounter for prophylactic removal of breast (principal); T85.44XA Capsular contracture of breast implant, initial encounter; T85.49XA Other mechanical complication of breast prosthesis and implant, initial encounter; Y81.2 Prosthetic and other implants, materials and accessory general- and plastic-surgery devices associated with adverse incidents; Y83.4 Other reconstructive surgery as the cause of abnormal reaction of the patient, or of later complication, without mention of misadventure at the time of the procedure; Z15.01 Genetic susceptibility to malignant neoplasm of breast; Z98.82 Breast implant status
CPT/HCPCS: 36415; 80048; 80053; 82306; 84134; 85014; 85018; 85025; 88304; 88307; 88311; 94640

== ENCOUNTER 2025-01-14 06:07 | Day surgery (SDC) | payer MEDICARE, OTHER, SELFPAY ==
[2025-01-14] VITALS (10 sets, daily range): BP systolic 40–133; BP diastolic 60–70; BMI 26.6
--- NOTE | 2025-01-14 13:05 | W.IMMPOSTOP ---
Surgical Immed Post Op Note
-
Primary Surgeon: JEAN Vanegas MD
Assisting Surgeon:
Pre-op Diagnosis: History of breast cancer, status postmastectomy
Post-op Diagnosis: Same
Procedure Performed: Revision of left reconstructed breast, delayed insertion of left tissue hose tubing backer
Anesthesia Type: General
Specimen / Cultures: None
Estimated Blood Loss: 20 cc
Complications: None
Operative Findings: As expected
--- NOTE | 2025-01-14 13:05 | OR.RPT ---
Operative Report
Operative Report
Date of surgery 01/14/2025
Surgeon: JEAN Vanegas MD
Preoperative diagnosis:
1. History of breast cancer
2. Status post bilateral mastectomy
Postoperative diagnosis: Same
Procedure:
1. Revision left reconstructed breast
2. Delayed insertion of left breast tissue credit department manager
Anesthesia: General
Specimens: None
Complications: None
EBL: 20 cc
Indications for procedure: Patient is a 79-year-old female with a history of bilateral breast augmentation who was diagnosed with breast cancer and underwent bilateral nipple sparing mastectomy and direct implant reconstruction. She developed wound
healing difficulties on the left resulting in implant exposure. The patient then elected for explant and delayed reconstruction with a tissue credit department manager. As such a plan was made to return to the operating room after subsequent time for healing and
no evidence of infection to revise the left mastectomy skin and pocket and inserted tissue credit department manager. Risks were reviewed at length including infection, wound healing difficulties, need for repeat procedure, seroma, hematoma. She understood this
risk desire to proceed
Procedure in detail: Patient was identified preoperatively and the surgical site was confirmed to be the left breast. All questions were answered and consents were confirmed. Patient was taken back to the operative room placed supine on the table.
Anesthesia was induced the patient was prepped and draped in the usual sterile fashion using ChloraPrep solution. Timeout for patient safety was performed is confirmed the preoperative antibiotics administered and bilateral SCDs were in place.
Procedure began with injection 1% lidocaine with epinephrine in the vertical mastectomy scar. A 10 blade was used to perform scar revision along the length and untether the scar from the underlying chest wall. Bovie electrocautery was then used
conservatively to reelevate the mastectomy skin flaps and recreate the left breast pocket. Of note, there was substantial ADM incorporation and scar burden. This required a combination of capsulectomies and checkerboard capsulotomies. This
allowed enough on table expansion to subsequently place a 14 cm wide tissue credit department manager. This was sutured to the chest wall with 0 silks. Marcaine block was performed in the pectoralis and intercostal spaces. A 15 [place] Jermaine drain was left and
tunneled in the subcutaneous space. After ensuring meticulous hemostasis, the wound bed was thoroughly irrigated with double antibiotic solution and Betadine solution. Wound was closed in layers using 2-0 Vicryl deep followed by INSORB stapler 3-0
Biosyn and 4-0 Biosyn. Patient tolerated the procedure well was performed out complication. All counts were correct at the end the case. She was extubated taken the PACU further care.
== END 2025-01-14 11:45 | disposition home or self-care (01) ==
LOC: SDS 06:07
PROVIDERS: ATTENDING PHYSICIAN Surgery Plastic and Reconstructive Surgery
DX: Z42.1 Encounter for breast reconstruction following mastectomy (principal); Z85.3 Personal history of malignant neoplasm of breast; Z90.13 Acquired absence of bilateral breasts and nipples
CPT/HCPCS: 19357; 19380; C1789